=== PATIENT | female | born 1985 | race Caucasian/White ===

== ENCOUNTER 2019-07-29 13:04 | Inpatient (IN) ==
[2019-07-29] MEDS ORDERED: 0.9 % Sodium Chloride 1,000 ML IVC ONE ×2 (13:09→17:26)
[2019-07-29] MEDS ORDERED: Ondansetron 4 MG/2 ML VIAL IVP ONE ×2 (13:09→17:26)
[2019-07-29 13:53] LABS: Hematocrit 33.5 % (35.3-44.9); Hemoglobin 11.3 g/dL (11.5-15.4); Mean Corpuscular HGB Conc 33.7 g/dL (31.6-35.5); Mean Corpuscular Volume 91.8 fL (83.0-100.0); Mean Platelet Volume 10.1 fL (9.4-12.4); Platelet Count 274 K/mcL (140-400); Red Blood Count 3.65 M/mcL (3.82-4.97); Red Cell Distribution Width 19.4 % (11.5-14.5); White Blood Count 5.7 K/mcL (4.3-11.1)
[2019-07-29 14:13] LABS: Hepatitis B Surface Antigen Nonreactive (Nonreactive)
[2019-07-29 14:30] LABS: Alanine Aminotransferase 848 Units/L (7-52); Albumin 3.3 g/dL (3.5-5.7); Albumin/Globulin Ratio 0.8 (1.1-2.2); Alkaline Phosphatase 455 Units/L (34-104); Aspartate Amino Transferase 1234 Units/L (13-39); BUN/Creatinine Ratio 28 (6-26); Bilirubin,Direct 5.4 mg/dL (0.0-0.2); Bilirubin,Indirect 2.8 mg/dL (0.0-1.0); Bilirubin,Total 8.2 mg/dL (0.3-1.0); Blood Urea Nitrogen 20 mg/dL (6-20); Calcium 9.2 mg/dL (8.6-10.3); Carbon Dioxide 23 mEq/L (23-29); Chloride 98 mEq/L (98-107); Globulin 4.3 g/dL (2.4-3.5); Glucose 91 mg/dL (70-105); Lipase 15 Units/L (11-82); Osmolality,Calculated 278 (280-300); Potassium 3.8 mEq/L (3.5-5.1); Sodium 133 mEq/L (136-145); Total Protein 7.6 g/dL (6.4-8.9); eGFR For African Americans > 60 (> 60); eGFR For Non-African Americans > 60 (> 60)
[2019-07-29 14:37] LABS: Anisocytosis 1+ (Not Present); Hypochromasia Present (Not Present); Lymphocytes # 1.9 K/mcL (0.6-4.6); Monocytes # 0.6 K/mcL (0.0-1.3); Neutrophils # 3.2 K/mcL (1.6-8.9); Platelet Estimate Normal (Normal)
[2019-07-29 14:42] LABS: Hepatitis B Core IgM Nonreactive (Nonreactive)
[2019-07-29 14:43] LABS: Hepatitis A Antibody IgM Nonreactive (Nonreactive)
[2019-07-29 14:59] LABS: Prothrombin Time 11.9 Seconds (9.4-12.1)
[2019-07-29 15:01] LABS: Activated Partial Thrombo Time 34.3 Seconds (26.0-36.0)
[2019-07-29 15:58] LABS: Acetaminophen < 10 mcg/mL (10-20)
[2019-07-29 16:09] LABS: Hepatitis C Virus Antibody Reactive (Nonreactive)
[2019-07-29 16:35] LABS: Bilirubin,Urine Moderate (Negative); Blood,Urine Large (Negative); Clarity,Urine Cloudy (Clear); Color,Urine Dark Yellow (Yellow); Glucose,Urine (UA) Normal (Normal); Ketones,Urine Negative (Negative); Leukocyte Esterase,Urine Trace (Negative); Nitrite,Urine Negative (Negative); PH,Urine 6.5 pH Units (5.0-8.0); Protein,Urine Negative (Neg-Trace); Specific Gravity,Urine 1.014 (1.010-1.025); Urobilinogen,Urine Normal (Normal)
[2019-07-29 16:37] LABS: Bacteria,Urine Few per hpf (None-Few); Hyaline Casts,Urine Few per lpf (None-Few); RBC,Urine 0-3 per hpf (0-3); WBC,Urine 0-3 per hpf (0-3)
[2019-07-29 16:59] LABS: Squamous Epithelial Cell,Urine Few per lpf (None-Few)
[2019-07-29] MEDS ORDERED: Ondansetron 4 MG/2 ML VIAL IVP PRN (17:55)
[2019-07-29] MEDS ORDERED: *HR* HYDROcodone/Acet 5/325 mg TABLET PO PRN (17:55)
[2019-07-29] MEDS ORDERED: Naloxone 0.4 MG/ML INJ IVP PRN (17:55)
[2019-07-29] MEDS ORDERED: D5% in Lactated Ringers 1,000 ML IVC SCH (18:00)
[2019-07-29] MEDS ORDERED: *HR* Dextrose 50 % in Water (Syg) 50 ML SYRINGE IVP PRN (18:58)
[2019-07-29] MEDS ORDERED: D5% in Water 1,000 ML IVC PRN (18:58)
[2019-07-29] MEDS ORDERED: Dextrose Gel 15 GM/37.5 ML TUBE PO PRN ×2 (18:58)
[2019-07-29] MEDS: D5% in Lactated Ringers 1,000 ML IVC SCH (19:35)
[2019-07-29 21:30] LABS: Albumin 2.6 g/dL (3.5-5.7); Albumin/Globulin Ratio 0.7 (1.1-2.2); Globulin 3.5 g/dL (2.4-3.5); Total Protein 6.1 g/dL (6.4-8.9)
[2019-07-29] MEDS ORDERED: Ibuprofen 400 MG TABLET PO ONE (21:37)
[2019-07-30] MEDS: Insulin LISPRO 300 UNITS/3 ML VIAL SQ SCH ×4 (00:49→17:15)
[2019-07-30] MEDS: Piperacillin/Tazobactam 3.375 GM in 0.9 % Sodium Chloride Mini Bag 100 ML IVPB SCH ×3 (04:13→20:14)
[2019-07-30] MEDS: D5% in Lactated Ringers 1,000 ML IVC SCH ×2 (05:34→17:39)
[2019-07-30 06:54] LABS: INR 1.2; Prothrombin Time 13.8 Seconds (9.4-12.1)
[2019-07-30 06:56] LABS: Basophils % 0.8 %; Eosinophils # 0.1 K/mcL (0.0-0.6); Hematocrit 26.9 % (35.3-44.9); Immature Granulocytes % 0.3 % (0-4); Lymphocytes % 49.6 %; Mean Corpuscular HGB Conc 33.8 g/dL (31.6-35.5); Mean Corpuscular Hemoglobin 31.1 pg (28.0-33.3); Mean Corpuscular Volume 91.8 fL (83.0-100.0); Mean Platelet Volume 10.2 fL (9.4-12.4); Monocytes # 0.5 K/mcL (0.0-1.3); Monocytes % 13.5 %; Neutrophils # 1.3 K/mcL (1.6-8.9); Platelet Count 207 K/mcL (140-400); Red Blood Count 2.93 M/mcL (3.82-4.97); Red Cell Distribution Width 19.5 % (11.5-14.5); Segmented Neutrophils % 32.8 %
[2019-07-30 06:57] LABS: Activated Partial Thrombo Time 32.5 Seconds (26.0-36.0)
[2019-07-30 07:07] LABS: Hemoglobin 9.1 g/dL (11.5-15.4)
[2019-07-30 07:47] LABS: Platelet Estimate Normal (Normal); Reactive Lymphocytes Present (Not Present)
[2019-07-30] MEDS ORDERED: 0.9 % Sodium Chloride 500 ML IVC ONE (09:27)
[2019-07-30] MEDS: Pantoprazole 40 MG VIAL IVP SCH (09:35)
[2019-07-30 09:41] LABS: Alanine Aminotransferase 665 Units/L (7-52); Albumin 2.5 g/dL (3.5-5.7); Albumin/Globulin Ratio 0.8 (1.1-2.2); Alkaline Phosphatase 319 Units/L (34-104); Aspartate Amino Transferase 924 Units/L (13-39); BUN/Creatinine Ratio 26 (6-26); Bilirubin,Total 7.7 mg/dL (0.3-1.0); Blood Urea Nitrogen 15 mg/dL (6-20); Carbon Dioxide 22 mEq/L (23-29); Chloride 107 mEq/L (98-107); Globulin 3.2 g/dL (2.4-3.5); Glucose 95 mg/dL (70-105); Magnesium 1.7 mg/dL (1.6-2.6); Osmolality,Calculated 283 (280-300); Phosphorous 3.8 mg/dL (2.7-4.5); Potassium 4.3 mEq/L (3.5-5.1); Sodium 136 mEq/L (136-145); Total Protein 5.7 g/dL (6.4-8.9); eGFR For African Americans > 60 (> 60); eGFR For Non-African Americans > 60 (> 60)
[2019-07-30 10:45] LABS: Alanine Aminotransferase 686 Units/L (7-52); Albumin 2.6 g/dL (3.5-5.7); Albumin/Globulin Ratio 0.7 (1.1-2.2); Alkaline Phosphatase 312 Units/L (34-104); Aspartate Amino Transferase 966 Units/L (13-39); BUN/Creatinine Ratio 24 (6-26); Bilirubin,Total 8.4 mg/dL (0.3-1.0); Blood Urea Nitrogen 15 mg/dL (6-20); Calcium 8.2 mg/dL (8.6-10.3); Carbon Dioxide 26 mEq/L (23-29); Chloride 105 mEq/L (98-107); Globulin 3.5 g/dL (2.4-3.5); Glucose 107 mg/dL (70-105); Osmolality,Calculated 285 (280-300); Potassium 4.3 mEq/L (3.5-5.1); Sodium 137 mEq/L (136-145); Total Protein 6.1 g/dL (6.4-8.9); eGFR For African Americans > 60 (> 60); eGFR For Non-African Americans > 60 (> 60)
[2019-07-30 14:14] LABS: Thyroid Stimulating Hormone 0.435 mcIU/mL (0.340-5.600); Troponin I 0.03 ng/mL (< 0.04)
[2019-07-30] MEDS: Lactulose Oral Soln 20 GM/30 ML UDC PO SCH ×2 (17:15→20:14)
[2019-07-30] MEDS ORDERED: Ampicillin/Sulbactam 1,500 MG in 0.9 % Sodium Chloride Mini Bag 100 ML IVPB SCH (18:38)
[2019-07-30] MEDS ORDERED: NON-FORMULARY MEDICATION 1 EACH EACH (Buprenorphine Hcl/Naloxone Hcl [Buprenorphin-Naloxon SL SCH (21:00)
[2019-07-31] MEDS: Insulin LISPRO 300 UNITS/3 ML VIAL SQ SCH ×3 (00:18→16:46)
[2019-07-31 00:43] LABS: Amphetamine Screen,Urine Positive ng/mL (Cutoff=1000); Barbiturate Screen,Urine Negative ng/mL (Cutoff=200); Benzodiazepines Screen,Urine Negative ng/mL (Cutoff=200); Cannabinoid Screen,Urine Negative ng/mL (Cutoff = 50); Cocaine Screen,Urine Negative ng/mL (Cutoff= 300); Opiate Screen,Urine Negative ng/mL (Cutoff=300); Phencyclidine Screen,Urine Negative ng/mL (Cutoff=25)
[2019-07-31] MEDS: D5% in Lactated Ringers 1,000 ML IVC SCH ×3 (01:24→16:49)
[2019-07-31] MEDS: Piperacillin/Tazobactam 3.375 GM in 0.9 % Sodium Chloride Mini Bag 100 ML IVPB SCH ×3 (04:02→19:39)
[2019-07-31 08:14] LABS: Hematocrit 27.5 % (35.3-44.9); Hemoglobin 9.5 g/dL (11.5-15.4); Mean Corpuscular HGB Conc 34.5 g/dL (31.6-35.5); Mean Corpuscular Volume 89.9 fL (83.0-100.0); Mean Platelet Volume 9.9 fL (9.4-12.4); Platelet Count 210 K/mcL (140-400); Red Blood Count 3.06 M/mcL (3.82-4.97); Red Cell Distribution Width 20.2 % (11.5-14.5); White Blood Count 4.2 K/mcL (4.3-11.1)
[2019-07-31] MEDS: Pantoprazole 40 MG VIAL IVP SCH (08:21)
[2019-07-31] MEDS: Lactulose Oral Soln 20 GM/30 ML UDC PO SCH ×2 (08:31→19:40)
[2019-07-31 08:55] LABS: Alanine Aminotransferase 576 Units/L (7-52); Albumin 2.3 g/dL (3.5-5.7); Albumin/Globulin Ratio 0.7 (1.1-2.2); Alkaline Phosphatase 271 Units/L (34-104); Aspartate Amino Transferase 741 Units/L (13-39); BUN/Creatinine Ratio 17 (6-26); Bilirubin,Total 8.4 mg/dL (0.3-1.0); Blood Urea Nitrogen 11 mg/dL (6-20); Calcium 7.8 mg/dL (8.6-10.3); Carbon Dioxide 28 mEq/L (23-29); Chloride 105 mEq/L (98-107); Globulin 3.2 g/dL (2.4-3.5); Glucose 128 mg/dL (70-105); Osmolality,Calculated 283 (280-300); Potassium 3.9 mEq/L (3.5-5.1); Sodium 136 mEq/L (136-145); Total Protein 5.5 g/dL (6.4-8.9); eGFR For African Americans > 60 (> 60); eGFR For Non-African Americans > 60 (> 60)
[2019-07-31 09:07] LABS: Eosinophils # 0.2 K/mcL (0.0-0.6); Lymphocytes # 1.7 K/mcL (0.6-4.6); Monocytes # 0.8 K/mcL (0.0-1.3); Neutrophils # 1.5 K/mcL (1.6-8.9); Platelet Estimate Normal (Normal); Reactive Lymphocytes Present (Not Present); Toxic Granulation Present (Not Present)
[2019-07-31 09:08] LABS: Poikilocytosis 1+ (Not Present)
[2019-07-31 17:02] LABS: Albumin 2.4 g/dL (3.5-5.7); Albumin/Globulin Ratio 0.7 (1.1-2.2); Bilirubin,Direct 6.3 mg/dL (0.0-0.2); Bilirubin,Indirect 2.8 mg/dL (0.0-1.0); Bilirubin,Total 9.1 mg/dL (0.3-1.0); Globulin 3.4 g/dL (2.4-3.5); Total Protein 5.8 g/dL (6.4-8.9)
[2019-07-31] MEDS ORDERED: D5% in Lactated Ringers 1,000 ML IVC SCH (18:15)
[2019-07-31] MEDS: Nicotine 14 MG PATCH.TD24 TD SCH (18:43)
[2019-07-31] MEDS ORDERED: Ibuprofen 600 MG TABLET PO ONE (20:08)
[2019-07-31] MEDS ORDERED: Insulin LISPRO 300 UNITS/3 ML VIAL SQ SCH (21:00)
[2019-08-01] MEDS: Piperacillin/Tazobactam 3.375 GM in 0.9 % Sodium Chloride Mini Bag 100 ML IVPB SCH ×2 (04:09→10:37)
[2019-08-01 04:57] LABS: Basophils % 0.2 %; Eosinophils # 0.1 K/mcL (0.0-0.6); Eosinophils % 2.7 %; Hematocrit 27.4 % (35.3-44.9); Hemoglobin 9.3 g/dL (11.5-15.4); Immature Granulocytes % 0.4 % (0-4); Lymphocytes # 1.9 K/mcL (0.6-4.6); Lymphocytes % 42.4 %; Mean Corpuscular HGB Conc 33.9 g/dL (31.6-35.5); Mean Corpuscular Hemoglobin 30.7 pg (28.0-33.3); Mean Corpuscular Volume 90.4 fL (83.0-100.0); Mean Platelet Volume 10.8 fL (9.4-12.4); Monocytes # 0.6 K/mcL (0.0-1.3); Monocytes % 14.3 %; Neutrophils # 1.8 K/mcL (1.6-8.9); Platelet Count 223 K/mcL (140-400); Red Blood Count 3.03 M/mcL (3.82-4.97); Red Cell Distribution Width 20.6 % (11.5-14.5); White Blood Count 4.5 K/mcL (4.3-11.1)
[2019-08-01 04:58] LABS: Alanine Aminotransferase 493 Units/L (7-52); Albumin 2.3 g/dL (3.5-5.7); Albumin/Globulin Ratio 0.7 (1.1-2.2); Alkaline Phosphatase 239 Units/L (34-104); Aspartate Amino Transferase 572 Units/L (13-39); BUN/Creatinine Ratio 17 (6-26); Blood Urea Nitrogen 9 mg/dL (6-20); Calcium 7.7 mg/dL (8.6-10.3); Carbon Dioxide 27 mEq/L (23-29); Chloride 106 mEq/L (98-107); Globulin 3.2 g/dL (2.4-3.5); Glucose 110 mg/dL (70-105); Osmolality,Calculated 285 (280-300); Potassium 3.7 mEq/L (3.5-5.1); Sodium 138 mEq/L (136-145); Total Protein 5.5 g/dL (6.4-8.9); eGFR For African Americans > 60 (> 60); eGFR For Non-African Americans > 60 (> 60)
[2019-08-01] MEDS: Insulin LISPRO 300 UNITS/3 ML VIAL SQ SCH ×2 (09:01→11:08)
[2019-08-01] MEDS: Nicotine 14 MG PATCH.TD24 TD SCH (09:02)
[2019-08-01] MEDS: Lactulose Oral Soln 20 GM/30 ML UDC PO SCH (09:02)
[2019-08-01] MEDS: Pantoprazole 40 MG VIAL IVP SCH (09:03)
[2019-08-01 11:08] VITALS: BP 96/70
[2019-08-01] MEDS ORDERED: SUBOXONE PO SCH (14:00)
[2019-08-01] MEDS ORDERED: Aminoglycoside Consult 1 EACH MC ONE (18:08)
[2019-08-01 20:54] LABS: Albumin 2.4 g/dL (3.5-5.7); Albumin/Globulin Ratio 0.7 (1.1-2.2); Bilirubin,Direct 6.7 mg/dL (0.0-0.2); Bilirubin,Indirect 3.7 mg/dL (0.0-1.0); Bilirubin,Total 10.4 mg/dL (0.3-1.0); Globulin 3.4 g/dL (2.4-3.5); Total Protein 5.8 g/dL (6.4-8.9)
[2019-08-02 10:22] LABS: AFP Tumor Marker Non-Pregnant 3 ng/mL (0-9)
[2019-08-02 10:43] LABS: ANA IgG by ELISA NONE DETECTED (None Detected); F-Actin (sm muscle) Ab IgG 13 Units (0-19); HCV Quant Interpretation DETECTED (Not Detected); HCV Quant Log 7.26 log IU/mL; Serine Protease-3 Antibody 14 AU/mL (0-19)
[2019-08-02 14:31] LABS: HCV Quant Interpretation DETECTED (Not Detected)
[2019-08-04 09:18] LABS: HCV Genotype by Sequencing 1A OR 1B
== END 2019-08-01 18:09 | disposition home or self-care (01) ==
LOC: CDU 13:04 → EMEROOARM 13:04 → SUATTDRO 20:04 → CDU 21:21 → SUATTDRO 07-30 11:06 → 2NNU 07-30 18:51
PROVIDERS: ADMIT Internal Medicine; ATTEND Family Medicine